=== PATIENT | male | born 1970 | race African-American/Black ===

== ENCOUNTER 2024-11-04 15:42 | Emergency (ER) | payer MEDICAID, OTHER ==
[~2024-11-04] VITALS: Ht 185.4 cm; Wt 77.0 kg
[~2024-11-04 15:42] MED LIST: BO1 TP; IBUP-2029 PO
[2024-11-04 15:50] VITALS: O2SAT 99
[2024-11-04 17:08] LABS: BASOPHILS % 0.7 % (0.0-2.0); EOSINOPHILS % 0.3 % (0.0-5.0); HEMATOCRIT. 42.1 % (42.0-52.0); HEMOGLOBIN. 14.1 g/dL (14.0-18.0); LYMPHOCYTES % 21.5 % (20.0-50.0); MEAN PLATELET VOLUME 10.3 fl (7.4-10.4); MONOCYTES % 2.9 % (2.0-8.0); NEUTROPHILS % 74.6 % (40.0-76.0); PLATELET 124 x1000/uL (130-400); RED BLOOD CELL COUNT 5.09 mill/uL (4.7-6.1); RED CELL DISTRIBUTION WIDTH 13.6 % (11.6-14.6)
[2024-11-04 17:20] LABS: CREATININE 1.2 mg/dL (0.6-1.3)
[2024-11-04 17:21] LABS: UREA NITROGEN BLOOD 13 mg/dL (9-23)
[2024-11-04 17:22] LABS: TROPONIN I HIGH SENSITIVITY < 4 ng/L (3.0-53)
[2024-11-04] MEDS ORDERED: NAPR-681 MT (17:47)
[2024-11-04] MEDS ORDERED: CYCL5TAB3 MT (17:47)
[2024-11-04 18:03] VITALS: BP 118/81; PULSE 75; RESP 17; TEMP 36.7; O2SAT 100
== END 2024-11-04 18:04 | disposition home or self-care (01) ==
LOC: ER 15:42
DX: S20.219A Contusion of unspecified front wall of thorax, initial encounter (principal); R07.89 Other chest pain; F12.90 Cannabis use, unspecified, uncomplicated; Z79.899 Other long term (current) drug therapy; X58.XXXA Exposure to other specified factors, initial encounter; Y93.89 Activity, other specified; Y92.89 Other specified places as the place of occurrence of the external cause; Y99.8 Other external cause status
CPT/HCPCS: 36415; 71045; 80048; 82962; 84484; 85025; 93005; 99285